=== PATIENT | female | born 1945 | race Caucasian/White ===

== ENCOUNTER → 2018-04-23 | Outpatient (CLI) | payer OTHER | LOC: M.RAD 09:21 | DX: Z12.31 Encounter for screening mammogram for malignant neoplasm of breast (principal) ==

== ENCOUNTER → 2019-04-16 | Outpatient (CLI) | payer OTHER | LOC: M.RAD 08:38 | DX: Z12.31 Encounter for screening mammogram for malignant neoplasm of breast (principal) ==

== ENCOUNTER → 2019-04-23 | Outpatient (CLI) | payer OTHER | LOC: M.ULTRA 09:57 | DX: R92.2 Inconclusive mammogram (principal) ==

== ENCOUNTER 2020-04-02 20:22 | Emergency (ER) | payer MEDICARE ==
[~2020-04-02] VITALS: Ht 160 cm; Wt 58.5 kg
[2020-04-02] MEDS ORDERED: LISINOPRIL2.5 MG PO (20:32)
[2020-04-02] MEDS ORDERED: NORVASC 2.5 MG2.5 M1 PO (20:33)
[2020-04-02 21:51] VITALS: BP 154/72
== END 2020-04-02 22:15 | disposition home or self-care (01) ==
LOC: M.ERS 20:22
DX: S06.0X0A Concussion without loss of consciousness, initial encounter (principal); S01.112A Laceration without foreign body of left eyelid and periocular area, initial encounter; I10 Essential (primary) hypertension; W01.0XXA Fall on same level from slipping, tripping and stumbling without subsequent striking against object, initial encounter; Y93.89 Activity, other specified; Y92.89 Other specified places as the place of occurrence of the external cause; Y99.8 Other external cause status

== ENCOUNTER → 2020-04-21 | Outpatient (CLI) | payer MEDICARE ==
[~2020-04-21] MED LIST: LISINOPRIL2.5 MG PO; NORVASC 2.5 MG2.5 M1 PO
== END ==
LOC: M.RAD 14:38
PROVIDERS: ATTEND Family Medicine
DX: Z12.31 Encounter for screening mammogram for malignant neoplasm of breast (principal)

== ENCOUNTER → 2021-04-14 | Outpatient (CLI) | payer MEDICARE | LOC: M.RAD 12:20 | PROVIDERS: ATTEND Family Medicine | DX: Z12.31 Encounter for screening mammogram for malignant neoplasm of breast (principal) ==

== ENCOUNTER → 2021-04-15 | Outpatient (CLI) | payer MEDICARE | LOC: M.LAB 05:35 | PROVIDERS: ATTEND Anesthesiology | DX: E87.6 Hypokalemia (principal) ==

== ENCOUNTER 2021-05-19 04:19 | Inpatient (IN) | payer MEDICARE ==
[2021-05-19] VITALS (7 sets, daily range): BP systolic 119–163; BP diastolic 48–68
[~2021-05-19] VITALS: Ht 160 cm; Wt 61.2 kg
[2021-05-19] MEDS ORDERED: XARELTO1 EACH PO (04:32)
[2021-05-19 06:42] LABS: ABSOLUTE EOSINOPHILS 0.2 thou/uL (0.0-0.7); ABSOLUTE LYMPHOCYTES 0.8 thou/uL (0.8-5.3); ABSOLUTE MONOCYTES 0.4 thou/uL (0.0-1.2); BASOPHILS 0.3 %; EOSINOPHILS 2.1 %; HEMATOCRIT 33.9 % (37.0-47.0); HEMOGLOBIN 11.3 gm/dL (12.0-15.0); LYMPHOCYTES 8.1 %; MCH 33.7 pg (26.0-34.0); MCHC 33.5 g/dL (28.0-37.0); MCV 100.6 fL (80.0-100.0); MONOCYTES 4.7 %; MPV 6.3 fl. (7.2-11.1); NUCLEATED RBCS 0 /100WBC; PLATELET COUNT* 520 thou/uL (150-400); POLYS 84.8 %; RBC 3.37 mil/uL (4.20-5.00); RDW-CV 19.1 % (10.5-14.5); WBC 9.4 thou/uL (4.0-11.0)
[2021-05-19 06:52] LABS: CALCIUM 8.7 mg/dL (8.5-10.1); CREATININE 0.6 mg/dL (0.6-1.3); POTASSIUM 3.4 mmol/L (3.5-5.1)
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
--- NOTE | 2021-05-19 19:40 | NUR ---
PATIENT ARRIVED FROM ER AT 1850. PATIENT SETTLED TO ROOM. VITALS TAKEN. AT BEDSIDE, ORIENTED TO ROOM. CALL LIGHT WITHIN REACH.
[2021-05-20 06:57] LABS: HEMATOCRIT 31.7 % (37.0-47.0); HEMOGLOBIN 10.6 gm/dL (12.0-15.0); MCH 33.7 pg (26.0-34.0); MCHC 33.3 g/dL (28.0-37.0); MCV 101.2 fL (80.0-100.0); MPV 6.7 fl. (7.2-11.1); RBC 3.13 mil/uL (4.20-5.00); RDW-CV 19.3 % (10.5-14.5); WBC 6.9 thou/uL (4.0-11.0)
[2021-05-20 07:14] LABS: ALBUMIN 2.6 g/dL (3.4-5.0); CALCIUM 8.7 mg/dL (8.5-10.1); CREATININE 0.5 mg/dL (0.6-1.3); POTASSIUM 3.4 mmol/L (3.5-5.1); TOTAL BILIRUBIN 0.6 mg/dL (<0.1-1.0); TOTAL PROTEIN 6.1 g/dL (6.4-8.2)
--- NOTE | 2021-05-20 07:47 | NUR ---
PATIENT SLEPT MOST OF THE NIGHT. PATIENT WAS GIVEN PAIN MEDICINE ONCE FOR PAIN. REMAINS AT BEDSIDE. STILL AWAITING MRI RESULTS. WILL CONTINUE TO MONITOR.
--- NOTE | 2021-05-20 15:22 | NUR ---
AM ASSESSMENT AND VITAL SIGNS COMPLETED DOCUMENTED. PT HAS WORKED WITH PT, OT AND ST TODAY. MRI REVEALED A HUMERAL NECK FRACTURE, LEFT ARM IMMOBILIZER IS NOW IN USE. PT'S IS IN THE ROOM AND IS VERY HELPFUL WITH HER CARE. TRAMADOL GIVEN TWICE THIS SHIFT FOR MODERATE PAIN. FALL PRECAUTIONS AND HOURLY ROUNDING CONTINUE.
[2021-05-20 15:47] VITALS: BP 115/54
--- NOTE | 2021-05-20 16:51 | NUR ---
Case Management Followup CM and providers met to discuss length of stay and discharge. Providers indicated pt not yet medically clear for discharge. Pt being assessed for rehab services. CM to continue to follow pt for discharge planning services.
[2021-05-20 20:30] VITALS: BP 116/48
--- NOTE | 2021-05-21 04:54 | NUR ---
PT A&O X 4. VSS ON RA. MEDS GIVEN ORDERED. TRAMADOL GIVEN X 1 FOR PAIN. RT SHOULDER IMMOBILIZER IN PLACE. AT BEDSIDE HELPS PT TO BSC. WILL CONTINUE TO MONITOR.
[2021-05-21 07:30] VITALS: BP 119/62
[2021-05-21 16:31] VITALS: BP 114/51
--- NOTE | 2021-05-21 16:42 | NUR ---
PATIENT UP WITH ASSISTANCE; GAIT BELT. TTWB TO LEFT EXT AND NWB TO RIGHT ARM. IMMOBILIZER IN PLACE AND SKIN CHECKED. PRN TRAMADOL GIVEN X 1 THIS SHIFT. PATIENT REFUSED TO GET INTO CHAIR, STATED SHE WOULD EAT IN BED. SPOKE WITH DR. POWELL THIS SHIFT PER DR. CAMPA REQUEST, NO NEW ORDERS RECEIVED.
[2021-05-21 20:30] VITALS: BP 128/58
--- NOTE | 2021-05-22 04:33 | NUR ---
PT A&O X 4. VSS ON RA. PAIN MANAGED WITH TRAMADOL. IMMOBILIZER IN PLACE. STAYED AT BEDSIDE. UP TO BSC WITH 1 ASSIST. WILL CONTINUE TO MONITOR.
[2021-05-22 07:51] VITALS: BP 106/57
[2021-05-22 15:56] VITALS: BP 134/51
--- NOTE | 2021-05-22 17:00 | NUR ---
PT UP WITH ASSIST. RUE IMMOBILIZER IN PLACE. 25% VWT BEARING TO RUE AND LLE. PRN PAIN MEDICATION GIVEN PER PT REQUEST. FLU VACCINE GIVEN. AT BEDSIDE AND ASSISTS WITH PT CARE. CALL LIGHT IN REACH. FALL PRECAUTIONS IN PLACE.
[2021-05-22 20:00] VITALS: BP 108/55
[2021-05-23 01:02] VITALS: BP 135/70
[2021-05-23 04:38] LABS: HEMATOCRIT 32.1 % (37.0-47.0); HEMOGLOBIN 10.7 gm/dL (12.0-15.0); MCH 33.4 pg (26.0-34.0); MCHC 33.3 g/dL (28.0-37.0); MCV 100.1 fL (80.0-100.0); MPV 7.1 fl. (7.2-11.1); RBC 3.21 mil/uL (4.20-5.00); RDW-CV 17.7 % (10.5-14.5); WBC 5.5 thou/uL (4.0-11.0)
[2021-05-23 04:40] LABS: ALBUMIN 2.5 g/dL (3.4-5.0); CALCIUM 8.8 mg/dL (8.5-10.1); CREATININE 0.6 mg/dL (0.6-1.3); MAGNESIUM 2.1 mg/dL (1.8-2.4); POTASSIUM 3.6 mmol/L (3.5-5.1); TOTAL BILIRUBIN 0.4 mg/dL (<0.1-1.0); TOTAL PROTEIN 5.9 g/dL (6.4-8.2)
--- NOTE | 2021-05-23 06:39 | NUR ---
ASSUMED CARE AT 1920. ALERT AND ORIENTED. PLEASANT. AT BEDSIDE. UP TO BSC. STATED THAT PREFERRED PT TO TAKE GABAPENTIN FOR PAIN AND REFUSED ANY OTHER PAIN MEDS. INFORMED DR POWELL THAT FEMUR XRAY RESULTS COMPLETED. HE WILL REVIEW RESULTS. CALL LIGHT IN REACH AND BED ALARM ON.
[2021-05-23 08:15] VITALS: BP 117/58
[2021-05-23] MEDS ORDERED: TRAMADOL 50 MG50 MG PO (10:03)
[2021-05-23] MEDS ORDERED: HYDROCODON-ACE1 EAC7 PO (10:03)
[2021-05-23] MEDS ORDERED: GABAPENTIN 100100 MG PO (10:03)
[2021-05-23 16:06] VITALS: BP 115/62
--- NOTE | 2021-05-23 17:24 | NUR ---
PATIENT AND DAUGHTER VERBALIZED UNDERSTANDING OF DISCHARGE INSTRUCTIONS. DAUGHTER AND PATIENT NOTIFIED TO MONITOR B/P AND IF GREATER THAN 180 OR LESS THAN [address] CHRISTIANSEN WITH D/C WITH CURRENT B/P. PATIENT LEFT VIA W/C.
--- NOTE | 2021-05-23 17:49 | NUR ---
CM F/U - Pt medically clear and rehab auth initiated.
--- NOTE | 2021-05-23 18:30 | NUR ---
ALERT AND ORIENTED X4. UP WITH 1 ASSIST AND GAIT BELT TO PIVOT TO BEDSIDE COMMODE. REMAINS 25% WEIGHTBEARING TO LEFT LOWER EXTREMITY AND RIGHT UPPER EXTREMITY. IMMOBILIZER REMAINS IN PLACE ON RIGHT ARM. LEFT HIP INCISION HEALED AND OPEN TO AIR. CRISTI AT DR POWELL'S OFFICE CALLED AND STATED DR POWELL SAID NO SURGERY NEEDED. GABAPENTIN DOSAGE INCREASED TO HELP WITH PAIN. FALL PRECAUTIONS IN PLACE. USES CALL LIGHT FOR ASSIST. REMAINS AT BEDSIDE.
[2021-05-23 19:30] VITALS: BP 113/52
--- NOTE | 2021-05-23 19:30 | NUR ---
RESTING QUIETLY IN BED WATCHING A FOOTBALL GAME ON TV WITH WHO IS AT BEDSIDE. CALL LIGHT WITHIN REACH. DENIES NEED FOR PAIN MEDICINE.
[2021-05-23 19:40] VITALS: BP 133/79
--- NOTE | 2021-05-24 05:21 | NUR ---
RESTED QUIETLY. SLEPT ON COT IN ROOM. HOURLY ROUNDING IN PROGRESS.
[2021-05-24 07:30] VITALS: BP 118/60
[2021-05-24 15:42] VITALS: BP 126/62
--- NOTE | 2021-05-24 15:45 | NUR ---
A&OX 4, PWD. RIGHT ARM IMMOBILIZED. 25% WB RUE and 25% WB LLE. LUNGS CLEAR IN UPPER LOBES AND DIMINISHED IN LOWER LOBES. REGULAR HEART RATE. +BSX4 QUADS. PEDAL PULSES PRESENT NO EDEMA NOTED. NO C/O PAIN. DISCHARGE TO REHAB PENDING INS. AUTH. WILL CONTINUE TO MONITOR.
--- NOTE | 2021-05-24 16:55 | NUR ---
Case Management Followup Pt medically clear for discharge and pending acute rehab auth. Should rehab not be an option, pt to be referred to skilled. CM to continue to follow pt.
[2021-05-24 19:45] VITALS: BP 94/40
[2021-05-24 23:54] VITALS: BP 102/47
[2021-05-25 04:00] VITALS: BP 135/57
--- NOTE | 2021-05-25 04:22 | NUR ---
PT A&O X 4. ON RA. BP SOFT. UP TO BSC WITH MODERATE ASSIST. DENIED PAIN. IMMOBILIZER IN PLACE. CALL LIGHT WITHIN REACH. WILL CONTINUE TO MONITOR.
[2021-05-25 08:09] VITALS: BP 133/51
[2021-05-25 16:12] VITALS: BP 117/52
--- NOTE | 2021-05-25 16:18 | NUR ---
CM Followup PT medically clear to discharge, but pending rehab auth. CM to continue to follow pt for discharge planning needs.
--- NOTE | 2021-05-25 17:12 | NUR ---
A&OX 4, PWD. PT C/O RIGHT SHOULDER PAIN X 1 THIS SHIFT AND RECEIVING HYDROCODONE WITH GOOD RELIEF. LUNGS CLEAR, HEART TONES REG. +BS X 4 QUADS. PEDAL PULSES PRESENT. NO EDEMA NOTED. NO IV ACCESS. IMMOBILIZER ON RIGHT SHOULDER. 25% WEIGHT BARRING FOR RIGHT UPPER ARM AND LEFT LEG. PT HAD BM THIS AM. AT BEDSIDE THIS AFTERNOON. NO OTHER C/O. WILL CONTINUE TO MONITOR.
[2021-05-25 19:45] VITALS: BP 94/38
[2021-05-26 00:08] VITALS: BP 121/59
--- NOTE | 2021-05-26 04:31 | NUR ---
PT A&O X 4. DENIED PAIN. UP TO BSC WITH [address] 25% WEIGHT BEARING MAINTAINED ON RUE AND LLE. CALL CALL CALL LIGHT WITHIN REACH. WILL CONTINUE TO [facility].
[2021-05-26 08:00] VITALS: BP 126/60
[2021-05-26 17:25] VITALS: BP 118/57
--- NOTE | 2021-05-26 18:00 | NUR ---
CM FOLLOWUP PT MEDICALLY CLEAR TO DISCHARGE. PT REHAB AUTH DENIED, BUT SNU APPROVED. PT'S TO VISIT [place] ON PT BEHALF TO DETERMINE IF REFERRAL WILL BE SUBMITTED TO [place]. CM TO FOLLOW.
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
[2021-05-26 19:45] VITALS: BP 112/48
--- NOTE | 2021-05-27 05:24 | NUR ---
PT SLEPT ON AND OFF OVERNIGHT. RUE IN IMMOBILIZER, 25% WEIGHT BEARING MAINTAINED AND TO L HIP. DENIES NEED FOR PAIN MED THIS SHIFT. NO LABS THIS MORNING. ANTICIPATING DISCHARGE TO SNF TODAY. UP WITH 1 ASSIST TO BSC OVERNIGHT. ABLE TO USE CALL LITE AND MAKE NEEDS KNOWN. CALL LITE IN EASY REACH. BED ALARM ON FOR SAFETY.
[2021-05-27 09:36] VITALS: BP 123/82
[2021-05-27 16:59] VITALS: BP 116/51
--- NOTE | 2021-05-27 17:22 | NUR ---
CM FOLLOWUP PT REFERRED TO [facility] ([phone]) FOR SKILLED SERVICES. PT ACCEPTED BY FACILITY AND AUTH IS PENDING.
[2021-05-27 20:00] VITALS: BP 101/48
--- NOTE | 2021-05-28 04:56 | NUR ---
PT HAS SLEPT WELL OVERNIGHT. USING CALL LITE TO ASK FOR ASSISTANCE UP TO BSC TO VOID. WEIGHT BEARING RESTRICTIONS 25% MAINTAINED TO R SHOULDER AND LEFT HIP. HAS DENIED PAIN OR PROBLEMS THIS SHIFT. R ARM IMMOBILIZER IN PLACE. CALL LITE IN EASY REACH, BED ALARM ON FOR SAFETY. HOPEFUL FOR DISCHARGE SOON.
[2021-05-28 08:00] VITALS: BP 119/58
[2021-05-28 16:18] VITALS: BP 99/44
--- NOTE | 2021-05-28 18:27 | NUR ---
I ASSUMED CARE OF THE PATIENT AT 0700. SHE IS ALERT AND ORIENTED X4 AND IS UP WITH ASSIST OF ONE AND A GAIT BELT. BED IS IN THE LOW LOCKED POSITION AND BED ALARM IS ON WITH CALL LIGHT IN REACH. HOURLY ROUNDING IS COMPLETED AND PATIENT NEEDS ARE MET. PAIN IS DENIED. IS AT THE BEDSIDE MOST OF THE DAY AND SHE PREFERS THAT HE TENDS TO MOST OF HER NEEDS. SHE HAS DISCHARGE ORDERS, HAS BEEN ACCEPTED TO [facility], BUT IS AWAITING INSURANCE AUTHORIZATION. SHE HAD A BOWEL MOVEMENT TODAY. WILL CONTINUE TO MONITOR.
[2021-05-28 20:00] VITALS: BP 122/60
--- NOTE | 2021-05-29 06:31 | NUR ---
PATIENT SLEPT WELL DURING THIS SHIFT. PT IS ON ROOM AIR AND HAS NO IV ACCESS. PT UP TO BSC TO VOID. PT WITH IMMOBILIZER ON RT ARM. PT DENIES NEEDS AT THIS TIME. FREQUENTLY USED ITEMS AND CALL LIGHT WITHIN REACH. SIDERAILS UPX2 AND BED ALARM ON. WILL CONTINUE TO MONITOR.
[2021-05-29 07:45] VITALS: BP 140/71
--- NOTE | 2021-05-29 16:10 | NUR ---
ALERT AND ORIENTED X4. UP WITH 1 ASSIST, FOR PIVOT TRANSFER TO BEDSIDE COMMODE. REMAINS 25% WEIGHTBEARING TO LEFT HIP AND RIGHT UPPER EXTREMITY. WEARS IMMOBILIZER TO RIGHT ARM. DENIES NEED FOR PAIN MEDICATION. LEFT HIP INCISION HEALED. USES CALL LIGHT FOR ASSIST. TAKES PILLS WITHOUT DIFFICULTY. FALL PRECAUTIONS IN PLACE.
[2021-05-29 16:12] VITALS: BP 113/50
--- NOTE | 2021-05-30 04:13 | NUR ---
PATIENT SLEPT WELL DURING THIS SHIFT. RT ARM IMMOBILIZER IN PLACE. FINGERS WITH GOOD ROM; PULSE 2+ AND CAP REFILL GOOD. PT DENIES PAIN. PT IS SALINE LOCKED AND IS ON ROOM AIR. PT USES CALL LIGHT APPROPRIATELY FOR ASSISTANCE TO BSC. PT VOIDS CLEAR YELLOW URINE. PT DENIES PAIN/NAUSEA. FREQUENTLY USED ITEMS AND CALL LIGHT WITHIN REACH. SIDERAILS UPX2 AND BED ALARM ON. WILL CONTINUE TO MONITOR.
[2021-05-30 09:25] VITALS: BP 148/70
--- NOTE | 2021-05-30 13:15 | NUR ---
REPORT CALLED TO ZHANE AT [facility]. HE WAS NOTIFIED OF MOST RECENT ASSESSMENT AND PATIENT BEING 25% WEIGHTBEARING TO RIGHT UPPER ARM AND LEFT LOWER LEG.PATIENT LEFT WITH AT HER SIDE VIA W/C VAN.
--- NOTE | 2021-05-30 15:57 | NUR ---
CM FOLLOWUP PT MEDICALLY CLEAR AND DISCHARGED TO [facility] FOR RESIDENTIAL SERVICES.
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
== END 2021-05-30 13:00 | DRG 543 ==
LOC: M.ERS 04:19 → M.TBA-ER 06:09 → M.3W 06:09
PROVIDERS: Emergency Medicine; Internal Medicine; ADMIT Internal Medicine; ATTEND Internal Medicine
PROC: 2W3AXYZ Immobilization of Right Upper Arm using Other Device (ICD-10-PCS; principal; 2021-05-20)
DX: M80.821A Other osteoporosis with current pathological fracture, right humerus, initial encounter for fracture (principal); E44.1 Mild protein-calorie malnutrition; I10 Essential (primary) hypertension; R53.81 Other malaise; E87.6 Hypokalemia; D64.9 Anemia, unspecified; R26.9 Unspecified abnormalities of gait and mobility; W18.30XA Fall on same level, unspecified, initial encounter; Z20.822 Contact with and (suspected) exposure to COVID-19; Z23 Encounter for immunization; Z68.23 Body mass index [BMI] 23.0-23.9, adult; Z88.0 Allergy status to penicillin; Y93.89 Activity, other specified; Y92.002 Bathroom of unspecified non-institutional (private) residence as the place of occurrence of the external cause; Y99.8 Other external cause status; Z79.899 Other long term (current) drug therapy

== ENCOUNTER → 2021-06-16 | Outpatient (CLI) | payer MEDICARE ==
[~2021-06-16] MED LIST changes: +GABAPENTIN 100100 MG PO; +HYDROCODON-ACE1 EAC7 PO; +TRAMADOL 50 MG50 MG PO; +XARELTO1 EACH PO
== END ==
LOC: M.RAD 16:14
PROVIDERS: ATTEND Orthopaedic Surgery
DX: S82.432A Displaced oblique fracture of shaft of left fibula, initial encounter for closed fracture (principal); S42.291A Other displaced fracture of upper end of right humerus, initial encounter for closed fracture; M19.011 Primary osteoarthritis, right shoulder; X58.XXXA Exposure to other specified factors, initial encounter; Y93.89 Activity, other specified; Y92.89 Other specified places as the place of occurrence of the external cause; Y99.8 Other external cause status

== ENCOUNTER → 2021-07-20 | Outpatient (CLI) | payer MEDICARE | LOC: M.RAD 14:34 | PROVIDERS: ATTEND Orthopaedic Surgery | DX: S42.354A Nondisplaced comminuted fracture of shaft of humerus, right arm, initial encounter for closed fracture (principal); S72.92XA Unspecified fracture of left femur, initial encounter for closed fracture; R26.81 Unsteadiness on feet; M25.741 Osteophyte, right hand; Z96.651 Presence of right artificial knee joint; X58.XXXA Exposure to other specified factors, initial encounter; Y93.89 Activity, other specified; Y92.89 Other specified places as the place of occurrence of the external cause; Y99.8 Other external cause status ==

== ENCOUNTER → 2021-08-08 | Outpatient (CLI) | payer MEDICARE | LOC: M.RAD 08-01 14:30 | PROVIDERS: ATTEND Family Medicine | DX: S72.8X2A Other fracture of left femur, initial encounter for closed fracture (principal); M81.0 Age-related osteoporosis without current pathological fracture; Z78.0 Asymptomatic menopausal state; X58.XXXA Exposure to other specified factors, initial encounter; Y93.89 Activity, other specified; Y92.89 Other specified places as the place of occurrence of the external cause; Y99.8 Other external cause status ==

== ENCOUNTER → 2021-08-23 | Outpatient (CLI) | payer MEDICARE | LOC: M.RAD 13:34 | PROVIDERS: ATTEND Orthopaedic Surgery | DX: S72.92XD Unspecified fracture of left femur, subsequent encounter for closed fracture with routine healing (principal); M19.011 Primary osteoarthritis, right shoulder; M89.8X5 Other specified disorders of bone, thigh; R26.81 Unsteadiness on feet; X58.XXXD Exposure to other specified factors, subsequent encounter ==